=== PATIENT | female | born 2000 | race Caucasian/White ===

== ENCOUNTER 2022-08-25 14:49 | Outpatient (REF) | payer MEDICAID, SELFPAY ==
[2022-08-25 21:34] LABS: Abs Immature Grans 0.01 10^3/uL (0.0-0.06); Absolute Basophil Count 0.03 10^3/uL (0.0-0.2); Absolute Eosinophil Count 0.05 10^3/uL (0.0-0.7); Absolute Lymphocyte Count 1.73 10^3/uL (1.2-3.4); Absolute Monocyte Count 0.34 10^3/uL (0.1-0.8); Absolute Neutrophil Count 4.58 10^3/uL (1.2-6.7); Basophils % 0.4; Eosinophils % 0.7; HGB 13.1 g/dL (11.2-15.7); Immature Grans % 0.1; Lymphocytes % 25.7; MCH 28.9 pg (27.0-33.0); MCV 91 fL (80-95); MPV 10.2 fL (8.0-11.0); Neutrophils % 68.1; Platelet Count 267 10^3/uL (130-400); RBC 4.53 10^6/uL (3.93-5.22); RDW 12.6 % (11.7-14.6); RDW-SD 41.9 fL; WBC 6.74 10^3/uL (4.4-10.8)
[2022-08-25 21:58] LABS: Ferritin 14 ng/mL (8-252)
[2022-08-25 22:03] LABS: Iron 39 ug/dL (50-170); Total Iron Binding Capacity 447 ug/dL (250-450); Transferrin Sat 9 % (15-50)
[2022-08-25 22:38] LABS: Vitamin D 25 Total 12.3 ng/mL (30-100)
[2022-08-27 10:25] LABS: Hepatitis C Ab w Rflx HCV PCR Negative (Negative)
[2022-08-27 10:28] LABS: Hepatitis B Surface Ag Negative (Negative)
[2022-08-27 10:41] LABS: HIV-1/2 Ag & Ab Screen Negative (Negative)
[2022-08-27 11:16] LABS: Syphilis Serology (RPR) Negative (Negative)
[2022-08-27 12:09] LABS: HSV Type 1 Ab, IgG Negative (Negative); HSV Type 2 Ab, IgG Negative (Negative)
[2022-08-27 13:50] LABS: Chlamydia Result Negative (Negative); GC Result Negative (Negative)
== END 2022-08-25 14:50 | disposition home or self-care (01) ==
LOC: NCHCN 14:49
PROVIDERS: Visit Provider Physician Assistant
DX: E61.1 Iron deficiency (principal); E55.9 Vitamin D deficiency, unspecified; N89.8 Other specified noninflammatory disorders of vagina; Z11.3 Encounter for screening for infections with a predominantly sexual mode of transmission; Z11.59 Encounter for screening for other viral diseases; Z11.4 Encounter for screening for human immunodeficiency virus [HIV]
CPT/HCPCS: 80048; 80061; 82306; 86803; 87340; 87389; 87491; 87591; 82728; 83036; 83540; 83550; 85025; 86592; 86695; 86696; 87480; 87510; 87660

== ENCOUNTER 2022-10-15 18:44 | Outpatient (REF) | payer MEDICAID, SELFPAY ==
[2022-10-15 19:50] LABS: C & S Indicated? C&S Done As Ordered; Crystals Many Amorphous HPF (Negative)
== END 2022-10-15 18:45 | disposition home or self-care (01) ==
LOC: NCHCN 18:44
PROVIDERS: Visit Provider Physician Assistant
DX: R30.0 Dysuria (principal)
CPT/HCPCS: 81015; 87086

== ENCOUNTER 2022-11-23 16:04 | Outpatient (REF) | payer MEDICAID, SELFPAY ==
[2022-11-23 19:14] LABS: Vitamin D 25 Total 11.6 ng/mL (30-100)
== END 2022-11-23 16:05 | disposition home or self-care (01) ==
LOC: NCHCN 16:04
PROVIDERS: Visit Provider Physician Assistant
DX: E55.9 Vitamin D deficiency, unspecified (principal)
CPT/HCPCS: 82306

== ENCOUNTER 2023-03-09 11:58 | Outpatient (REF) | payer MEDICAID, SELFPAY ==
[2023-03-09 20:05] LABS: Abs Immature Grans 0.01 10^3/uL (0.0-0.06); Absolute Basophil Count 0.06 10^3/uL (0.0-0.2); Absolute Eosinophil Count 0.13 10^3/uL (0.0-0.7); Absolute Lymphocyte Count 2.41 10^3/uL (1.2-3.4); Absolute Monocyte Count 0.31 10^3/uL (0.1-0.8); Absolute Neutrophil Count 3.59 10^3/uL (1.2-6.7); Basophils % 0.9; HCT 41.7 % (36.0-46.0); HGB 13.5 g/dL (11.2-15.7); Immature Grans % 0.2; MCH 28.9 pg (27.0-33.0); MCHC 32.4 % (32.0-36.0); MCV 89 fL (80-95); MPV 10.1 fL (8.0-11.0); Monocytes % 4.8; Neutrophils % 55.1; Platelet Count 248 10^3/uL (130-400); RBC 4.67 10^6/uL (3.93-5.22); RDW-SD 42.4 fL; WBC 6.51 10^3/uL (4.4-10.8)
[2023-03-09 20:12] LABS: ESR < 1 mm/hr (0-20)
[2023-03-09 20:58] LABS: Iron 49 ug/dL (50-170); Total Iron Binding Capacity 392 ug/dL (250-450); Transferrin Sat 13 % (15-50)
[2023-03-09 21:12] LABS: ALT 20 U/L (14-59); AST 11 U/L (15-37); Albumin 4.3 g/dL (3.4-5.0); Alkaline Phosphatase 50 U/L (46-116); Anion Gap 8.2 mmol/L (3-11); BUN 7 mg/dL (7-18); Bilirubin, Total 0.5 mg/dL (0.2-1.0); CO2 28.8 mmol/L (21.0-32.0); CREATININE 0.6 mg/dL (0.55-1.02); Calcium 8.9 mg/dL (8.5-10.1); Chloride 105 mmol/L (98-107); Ferritin 18 ng/mL (8-252); Glucose 93 mg/dL (74-106); Potassium 4.1 mmol/L (3.5-5.1); Sodium 142 mmol/L (136-145); TSH (W/Ref FT4) 1.02 uIU/mL (0.36-3.74); Total Protein 7.7 g/dL (6.4-8.2); Vitamin B12 586 pg/mL (193-986)
[2023-03-09 21:35] LABS: C-Reactive Protein 0.08 mg/dL (0.0-0.3)
[2023-03-09 21:49] LABS: Vitamin D 25 Total 22.8 ng/mL (30-100)
[2023-03-14 23:25] LABS: Thyroglobulin Antibody <15 U/mL (<=60); Thyroperoxidase Antibody <28 U/mL (<=60)
== END 2023-03-09 11:59 | disposition home or self-care (01) ==
LOC: NCHCN 11:58
PROVIDERS: Visit Provider Physician Assistant
DX: E55.9 Vitamin D deficiency, unspecified (principal); R07.9 Chest pain, unspecified; E61.1 Iron deficiency; R00.2 Palpitations; H53.9 Unspecified visual disturbance; Z83.49 Family history of other endocrine, nutritional and metabolic diseases; R42 Dizziness and giddiness
CPT/HCPCS: 80053; 82306; 85652; 86376; 82607; 82728; 83540; 83550; 83735; 84443; 85025; 86140

== ENCOUNTER 2024-11-22 17:34 | Outpatient (REF) | payer MEDICAID, SELFPAY ==
--- NOTE | 2024-11-22 15:30 | PAPFT_PTH ---
PATIENT: Luciana Silva [id number] AGE/SX: 24/F ROOM: RE11/22/[address]: Bonita Cervantes : 2000 BED: DIS: 11/22/2024 SPEC #: [id number] RECD: 11/22/24 18:32 STATUS: TANGELA REQ #: [id number] DOLORES: 11/22/24 15:[address]: Bonita Cervantes DEPT: [facility] Cytology RECD BY: Lary Jaime ENTERED: 11/22/24 18:33 SP TYPE: PAPFT OT DR: Unknown,Unknown Tissues: 1 - CX/ENDOCX FOR PAP SMEARS Procedures: PAP THIN PREP/[facility] Screening Comments: [id number] (CHLAMYDIA/GC)
[2024-11-24 12:48] LABS: Bacterial Vaginosis (BV) Negative (Negative); Candida glabrata Negative (Negative); Candida species group Negative (Negative); Trichomonas vaginalis Negative (Negative)
[2024-11-26 13:09] LABS: Chlamydia Result Negative (Negative); GC Result Negative (Negative)
== END 2024-11-22 17:35 | disposition home or self-care (01) ==
LOC: NCHCN 17:34
PROVIDERS: Visit Provider Physician Assistant
DX: Z12.4 Encounter for screening for malignant neoplasm of cervix (principal); R87.618 Other abnormal cytological findings on specimens from cervix uteri
CPT/HCPCS: 81513; 87077; 87481; 87491; 87591; 87661; 88142; 87086; 87186; 87624

== ENCOUNTER 2025-07-11 18:26 | Outpatient (REF) | payer MEDICAID, SELFPAY ==
[2025-07-11 19:38] LABS: Iron 107 ug/dL (50-170); Total Iron Binding Capacity 332 ug/dL (250-425); Transferrin Sat 32 % (15-50)
[2025-07-11 19:44] LABS: Ferritin 21 ng/mL (7-271); Vitamin D 25 Total 37 ng/mL (30-100)
== END 2025-07-11 18:27 | disposition home or self-care (01) ==
LOC: NCHCN 18:26
PROVIDERS: Visit Provider Physician Assistant
DX: E61.1 Iron deficiency (principal); E55.9 Vitamin D deficiency, unspecified
CPT/HCPCS: 82306; 82728; 83540; 83550